=== PATIENT | male | born 1985 | race Caucasian/White ===

== ENCOUNTER → 2024-04-06 | Day surgery (SDC) | payer OTHER ==
[~2024-04-06] MED LIST: Albuterol 2.5 MG (3 mL) NEB NEB PRN; Methacholine Chloride KIT IH SCH; Sodium Chloride For Inhalation 0.9% 3 ML NEB NEB SCH
== END ==
LOC: CSHCP 10:33
PROVIDERS: ATTEND Internal Medicine Critical Care Medicine
DX: J45.20 Mild intermittent asthma, uncomplicated (principal); R91.1 Solitary pulmonary nodule; Z90.49 Acquired absence of other specified parts of digestive tract; Z98.890 Other specified postprocedural states; Z88.5 Allergy status to narcotic agent; Z79.51 Long term (current) use of inhaled steroids; Z79.899 Other long term (current) drug therapy
CPT/HCPCS: 94060; 94070; 94760; J7611; J7674